=== PATIENT | male | born 1995 | race African-American/Black ===

== ENCOUNTER 2025-04-05 10:05 | Emergency (ER) | payer MEDICAID ==
[~2025-04-05] VITALS: Ht 182.9 cm; Wt 72.6 kg
[2025-04-05] MEDS ORDERED: DICYCLOMINE HCL INJ 20 MG/2 ML AMPUL IM ONE (10:25)
[2025-04-05] MEDS ORDERED: METOCLOPRAMIDE HCL 10 MG/2 ML VIAL ONE (10:25)
[2025-04-05 10:31] LABS: PLATELET COUNT (AUTO) 189 K/uL (150-450); RED BLOOD CELL COUNT(AUTO) 5.75 MIL/uL (4.5-6.0); RED CELL DISTRIBUTION WIDTH 12.8 % (11.5-15.0); WHITE BLOOD COUNT (AUTO) 11.7 K/uL (4.3-11.0)
[2025-04-05] MEDS: DICYCLOMINE HCL INJ 20 MG/2 ML AMPUL IM ONE (10:36)
[2025-04-05] MEDS: IV NS 0.9% 1,000 ML BAG IV ONE ×2 (10:36→11:42)
[2025-04-05] MEDS: METOCLOPRAMIDE HCL 10 MG/2 ML VIAL IV ONE (10:36)
[2025-04-05 10:41] LABS: CALCIUM, SERUM 9.2 mg/dL (8.5-10.1); CREATININE 1.3 mg/dL (0.6-1.3); SODIUM SERUM 141.0 mmol/L (136-145); UREA NITROGEN, BLOOD 9.0 mg/dL (7-18)
[2025-04-05] MEDS ORDERED: DICY10CA37 PO (10:47)
[2025-04-05] MEDS ORDERED: ONDA4TAB5 PO (10:47)
[2025-04-05 10:53] LABS: ASPARTATE AMINOTRANSFERASE 20.0 U/L (15-37); TOTAL PROTEIN, SERUM 8.2 g/dL (6.4-8.2)
[2025-04-05 12:35] LABS: APPEARANCE,URINE CLEAR (CLEAR); BLOOD, URINE TRACE-INTA Ery/uL (NEGATIVE); LEUKOCYTE ESTERASE ,URINE NEGATIVE (NEGATIVE); NITRITE, URINE NEGATIVE (NEGATIVE); UGLUCOSE NEGATIVE (NEGATIVE)
[2025-04-05 12:36] LABS: AMPHETAMINE, URINE NEGATIVE (NEGATIVE); BARBITURATE, URINE NEGATIVE (NEGATIVE); BENZODIAZEPINE, URINE NEGATIVE (NEGATIVE); COCCAINE, URINE NEGATIVE (NEGATIVE); OPIATE, URINE NEGATIVE (NEGATIVE)
[2025-04-05 12:41] LABS: CANNABINOID, URINE POSITIVE (NEGATIVE)
[2025-04-05 12:46] LABS: ADD URINE CULTURE NO; SQUAMOUS EPITHELIAL CELL,UR 0-2 /HPF (None Seen)
[2025-04-05 14:21] VITALS: BP 122/65; TEMP 98; O2SAT 98
== END 2025-04-05 14:21 | disposition home or self-care (01) ==
LOC: ER 10:34
DX: R10.9 Unspecified abdominal pain (principal); R11.2 Nausea with vomiting, unspecified; R19.7 Diarrhea, unspecified; F12.10 Cannabis abuse, uncomplicated; F17.200 Nicotine dependence, unspecified, uncomplicated; Z79.899 Other long term (current) drug therapy
CPT/HCPCS: 99285; 96374; 96361; 96375; 93005; 76705; 74176; 85025; 80048; 83690; 80076; 81001; 36415; 84484; 80320; 80307; J1200; J2765; J0500; G0480